=== PATIENT | male | born 1990 | race Caucasian/White ===

== ENCOUNTER 2020-03-31 21:39 | Emergency (ER) | payer MEDICAID ==
[~2020-03-31] VITALS: Ht 188 cm; Wt 95.0 kg
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
[2020-03-31] MEDS ORDERED: MORPHINE SULFATE 4 MG/ML, 1ML ONE (22:13)
[2020-03-31] MEDS ORDERED: CEFAZOLIN PMX 1GM/50ML 50 ML ONE (22:13)
[2020-03-31] MEDS ORDERED: DIPH,PERTUSS(ACELL),TET VAC/PF 0.5 ML IM-VACC ONE ×2 (22:13→22:30)
[2020-03-31] MEDS ORDERED: ONDANSETRON 2MG/ML, 2ML ONE (22:13)
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
[2020-03-31] MEDS ORDERED: ONDANSETRON 2MG/ML, 2ML IVPush ONE (22:30)
[2020-03-31] MEDS ORDERED: CEFAZOLIN PMX 1GM/50ML 50 ML IV ONE (22:30)
[2020-03-31] MEDS ORDERED: SODIUM CHLORIDE 0.9% 1,000ML IVBOLUS ONE (22:30)
[2020-03-31] MEDS ORDERED: SODIUM CHLORIDE FLUSH 10ML SYR IVF ONE (22:30)
[2020-03-31] MEDS ORDERED: MORPHINE SULFATE 4 MG/ML, 1ML IVPush PRN (22:30)
--- NOTE | 2020-03-31 22:50 | NUR ---
PATIENT MEDICATED PER EMAR.
--- NOTE | 2020-03-31 22:50 | NUR ---
Galilea RN: Initiated IV. Admin meds per jan.
[2020-03-31 23:10] LABS: BASOPHILS # (AUTO) 0.04 x10^3/uL (0-0.1); BASOPHILS % (AUTO) 0 % (0-1); EOSINOPHILS % (AUTO) 2 % (1-7); LYMPHOCYTES # (AUTO) 1.16 x10^3/uL (1-3.4); LYMPHOCYTES % (AUTO) 10 % (22-44); MD NO; MEAN CORPUSCULAR HGB CONC 33.2 g/dL (33.2-36.2); MEAN CORPUSCULAR VOLUME 90.5 fL (81-97); MEAN PLATELET VOLUME 7.2 fL (7.4-10.4); MONOCYTES # (AUTO) 0.74 x10^3/uL (0.2-0.8); MONOCYTES % (AUTO) 7 % (2-9); NEUTROPHILS # (AUTO) 9.28 x10^3/uL (1.8-6.8); NEUTROPHILS % (AUTO) 81 % (42-75); PLATELET COUNT 342 x10^3/uL (130-400); RED BLOOD COUNT 4.52 x10^6/uL (4.38-5.82); RED CELL DISTRIBUTION WIDTH 13.1 % (9.4-14.8)
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
[2020-03-31 23:19] LABS: ANION GAP 5 mmol/L (5-15); CALCIUM 8.3 mg/dL (8.5-10.1); CHLORIDE 105 mmol/L (98-107)
[2020-03-31 23:22] LABS: ALANINE AMINOTRANSFERASE 26 U/L (12-78); ALKALINE PHOSPHATASE 79 U/L (45-117); BILIRUBIN,TOTAL 0.3 mg/dL (0.2-1.0); CREATININE 0.89 mg/dL (0.7-1.3); TOTAL PROTEIN 6.6 g/dL (6.4-8.2)
--- NOTE | 2020-03-31 23:25 | NUR ---
PATIENT IN CT
[2020-04-01] MEDS ORDERED: OMNIPAQUE 350 MG/ML, 100ML BOTTLE ONE (00:02)
[2020-04-01 00:10] VITALS: BP 107/62
--- NOTE | 2020-04-01 00:15 | NUR ---
PATIENT SLEEPING, REFUSING TO MOVE EXTREMITIES, GIVEN MUMBLING AMSWERS TO QUESTIONS. VSS, SPO2 AT 97% ON RA. ERP NOTIFIED OF BEHAVIOR.
--- NOTE | 2020-04-01 00:52 | NUR ---
MICHAEL AT [facility] WAS CALLED. DR KELLEY ACCEPTING. DORA WAS CALLED [facility] ON THE WAY. FACE SHEET FAXED TO [facility] AND [facility].
--- NOTE | 2020-04-01 00:54 | NUR ---
REPORT GIVEN TO SHRAVAN DELGADO AT [facility]
--- NOTE | 2020-04-01 01:15 | NUR ---
PATIENT TRASNFERRED TO [facility]
== END 2020-04-01 01:47 | disposition home or self-care (01) ==
LOC: ED 22:13
DX: S31.110A Laceration without foreign body of abdominal wall, right upper quadrant without penetration into peritoneal cavity, initial encounter (principal); F17.210 Nicotine dependence, cigarettes, uncomplicated; W26.0XXA Contact with knife, initial encounter; Y93.89 Activity, other specified; Y92.009 Unspecified place in unspecified non-institutional (private) residence as the place of occurrence of the external cause; Y99.8 Other external cause status
CPT/HCPCS: 36415; 74177; 80053; 85025; 90471; 90715; 96365; 96375; 99285; J0690; J2270; J2405; J7030; Q9967